=== PATIENT | female | born 2000 | race Caucasian/White ===

== ENCOUNTER 2024-11-23 19:45 | Inpatient (IN) | payer OTHER ==
[~2024-11-23] VITALS: Ht 165.1 cm; Wt 75.9 kg
[2024-11-23] MEDS: SODIUM CHLORIDE 0.9% 1,000 ML IV ONE (20:51)
[2024-11-23] MEDS: FAMOTIDINE 20 MG/2 ML VIAL IVP ONE (20:52)
[2024-11-23] MEDS: ONDANSETRON HCL 4 MG/2 ML VIAL IVP ONE (20:52)
[2024-11-23] MEDS: MAG HYDROX/ALUMINUM HYD/SIMETH 30 ML SUSPENSION UDCUP PO ONE (20:53)
[2024-11-23] MEDS: KETOROLAC TROMETHAMINE 30 MG/ML VIAL IVP ONE (20:53)
[2024-11-23 20:55] LABS: PLATELET COUNT (AUTO) 508 K/uL (150-450); RED BLOOD CELL COUNT(AUTO) 5.69 MIL/uL (4.00-5.20); RED CELL DISTRIBUTION WIDTH 18.2 % (11.5-14.5); WHITE BLOOD COUNT (AUTO) 15.0 K/uL (4.5-11.0)
[2024-11-23 20:56] LABS: RBC MORPHOLOGY COMMENT ABNORMAL RBC MORPH
[2024-11-23 21:07] LABS: CALCIUM, TOTAL 9.6 mg/dL (8.8-10.5); CREATININE 0.82 mg/dL (0.60-1.30); GLOMERULAR FILTR. RATE CALC > 60 mL/min (>60); GLUCOSE,RANDOM 85 mg/dL (70-110); SODIUM SERUM 136 mmol/L (136-145); UREA NITROGEN, BLOOD 17 mg/dL (7-18)
[2024-11-23 21:11] LABS: ASPARTATE AMINOTRANSFERASE 50 U/L (15-37); TOTAL PROTEIN, SERUM 8.5 g/dL (6.4-8.2)
[2024-11-23] MEDS ORDERED: POTASSIUM CHL 10 MEQ/WATER 50 ML IV SCH (21:15)
[2024-11-23 21:16] LABS: TROPONIN I-HIGH SENSITIVITY 21 ng/L (<51)
[2024-11-23 21:17] LABS: ALCOHOL, BLOOD (SERUM) < 3 mg/dL (0-10)
[2024-11-23 21:18] LABS: PH,URINE DRUG SCREEN 6.0 (5.0-8.0)
[2024-11-23 21:25] LABS: ALCOHOL, URINE DRUG SCREEN NEGATIVE (NEGATIVE); AMPHET/METH SCREEN,URINE NEGATIVE (NEGATIVE); BARBITURATE SCREEN, URINE NEGATIVE (NEGATIVE); CANNABINOID SCREEN,URINE POSITIVE (NEGATIVE); COCAINE SCREEN,URINE NEGATIVE (NEGATIVE); METHADONE SCREEN, URINE NEGATIVE (NEGATIVE)
[2024-11-23] MEDS: POTASSIUM CHLORIDE 40 MEQ in SODIUM CHLORIDE 0.9% 1,000 ML IV ONE (21:30)
[2024-11-23 21:48] LABS: LACTIC ACID 2.0 mmol/L (0.4-2.0)
[2024-11-23] MEDS: POTASSIUM CHLORIDE 20 MEQ ER TABLET PO ONE (22:20)
[2024-11-24 05:40] VITALS: BP 131/91; PULSE 84; RESP 18; TEMP 98.8; O2SAT 100
[2024-11-24] MEDS ORDERED: MORPHINE SULFATE 2 MG/ML SYRINGE IVP PRN (06:00)
[2024-11-24] MEDS ORDERED: MAGNESIUM HYDROXIDE SUSPENSION 30 ML UDCUP PO PRN (06:00)
[2024-11-24] MEDS ORDERED: ZOLPIDEM TARTRATE 5 MG TABLET PO PRN (06:00)
[2024-11-24] MEDS ORDERED: ACETAMINOPHEN 325 MG TABLET PO PRN (06:00)
[2024-11-24] MEDS ORDERED: BISACODYL 10 MG RECTAL RECTAL SUPPOSITORY PR PRN (06:00)
[2024-11-24] MEDS ORDERED: ALBUTEROL SULFATE 2.5 MG/0.5 ML NEB SOLUTION NEB PRN (06:00)
[2024-11-24] MEDS ORDERED: HYDROCODONE/ACETAMINOPHEN 5-325 MG TABLET PO PRN (06:00)
[2024-11-24] MEDS ORDERED: IPRATROPIUM BROMIDE 0.5 MG/2.5 ML NEB SOLUTION NEB PRN (06:00)
[2024-11-24] MEDS: ONDANSETRON HCL 4 MG/2 ML VIAL IVP PRN (06:48)
[2024-11-24 07:19] LABS: PLATELET COUNT (AUTO) 389 K/uL (150-450); RED BLOOD CELL COUNT(AUTO) 5.14 MIL/uL (4.00-5.20); RED CELL DISTRIBUTION WIDTH 17.8 % (11.5-14.5); WHITE BLOOD COUNT (AUTO) 11.9 K/uL (4.5-11.0)
[2024-11-24 07:24] LABS: RBC MORPHOLOGY COMMENT ABNORMAL RBC MORPH
[2024-11-24 07:31] LABS: CALCIUM, TOTAL 8.7 mg/dL (8.8-10.5); CREATININE 0.68 mg/dL (0.60-1.30); GLOMERULAR FILTR. RATE CALC > 60 mL/min (>60); GLUCOSE,RANDOM 79 mg/dL (70-110); SODIUM SERUM 138 mmol/L (136-145); UREA NITROGEN, BLOOD 14 mg/dL (7-18)
[2024-11-24] MEDS: SODIUM CHLORIDE 0.9% 1,000 ML IV SCH (07:39)
[2024-11-24] MEDS: HEPARIN SODIUM,PORCINE 5,000 UNITS/ML VIAL SQ SCH (08:00)
[2024-11-24 08:19] VITALS: BP 132/81; PULSE 85; RESP 17; TEMP 98.4; O2SAT 99
[2024-11-24] MEDS: PANTOPRAZOLE SODIUM 40 MG/VIAL IVP SCH (08:40)
[2024-11-24] MEDS: DOCUSATE SODIUM 100 MG CAPSULE PO SCH (08:41)
[2024-11-24] MEDS ORDERED: CIPR500S4 PO (09:07)
[2024-11-24] MEDS ORDERED: ALPR-410 PO (09:08)
[2024-11-24] MEDS ORDERED: HYDR25TA83 PO (09:10)
[2024-11-24] MEDS ORDERED: PROM25SU58 PR (09:15)
[2024-11-24 11:36] VITALS: BP 126/87; PULSE 74; RESP 17; TEMP 98.4; O2SAT 98
[2024-11-24] MEDS ORDERED: CIPR-515 PO (11:39)
[2024-11-24 15:50] VITALS: BP 138/99; PULSE 83; RESP 17; TEMP 98.1; O2SAT 98
[2024-11-24] MEDS ORDERED: MELATONIN 5 MG TABLET PO SCH (21:00)
== END 2024-11-24 16:20 | disposition left against medical advice (07) | DRG 422 ==
LOC: EMS 19:49 → EDH 11-24 03:43 → 5N 11-24 05:25
PROVIDERS: ADMIT Hospitalist; ATTEND Hospitalist
DX: E87.6 Hypokalemia (principal); E86.0 Dehydration; F33.1 Major depressive disorder, recurrent, moderate; F41.9 Anxiety disorder, unspecified; Z55.9 Problems related to education and literacy, unspecified; Z65.3 Problems related to other legal circumstances; Z59.9 Problem related to housing and economic circumstances, unspecified; Z63.9 Problem related to primary support group, unspecified
CPT/HCPCS: 80048; 80076; 80307; 83605; 83690; 83735; 84100; 84484; 84703; 85025; 93005; 99285; G0480; J1644; J1885; J2405; J2470; J3480; J3490; J7030

== ENCOUNTER → 2024-11-29 | Emergency (ER) | payer OTHER ==
[~2024-11-29] VITALS: Ht 172.7 cm; Wt 71.8 kg
[~2024-11-29] MED LIST: ALPR-410 PO; CIPR-515 PO; HYDR25TA83 PO; ONDA-104 PO; PROM25SU58 PR
[2024-11-29 21:10] VITALS: BP 134/98; PULSE 124; RESP 26; TEMP 98.6; O2SAT 98
== END | disposition left against medical advice (07) ==
LOC: EMS 20:58
DX: R11.10 Vomiting, unspecified (principal); Z53.21 Procedure and treatment not carried out due to patient leaving prior to being seen by health care provider

== ENCOUNTER 2024-11-30 06:23 | Emergency (ER) | payer OTHER ==
[~2024-11-30] VITALS: Ht 172.7 cm; Wt 72.0 kg
[~2024-11-30 06:23] MED LIST changes: -ONDA-104 PO
[2024-11-30 06:33] VITALS: TEMP 97.9
[2024-11-30 08:03] LABS: PLATELET COUNT (AUTO) 464 K/uL (150-450); RED BLOOD CELL COUNT(AUTO) 6.35 MIL/uL (4.00-5.20); RED CELL DISTRIBUTION WIDTH 19.2 % (11.5-14.5); WHITE BLOOD COUNT (AUTO) 17.6 K/uL (4.5-11.0)
[2024-11-30 08:12] LABS: CALCIUM, TOTAL 10.3 mg/dL (8.8-10.5); CREATININE 0.87 mg/dL (0.60-1.30); GLOMERULAR FILTR. RATE CALC > 60 mL/min (>60); GLUCOSE,RANDOM 99 mg/dL (70-110); SODIUM SERUM 137 mmol/L (136-145); UREA NITROGEN, BLOOD 13 mg/dL (7-18)
[2024-11-30] MEDS: SODIUM CHLORIDE 0.9% 1,000 ML IV ONE ×2 (08:15→11:00)
[2024-11-30] MEDS: ONDANSETRON HCL 4 MG/2 ML VIAL IVP ONE (08:16)
[2024-11-30 08:22] LABS: HCG,QUANTITATIVE < 1 mIU/mL (0-6)
[2024-11-30 08:57] LABS: APPEARANCE,URINE HAZY (CLEAR); GLUCOSE, URINE (UA) NEGATIVE (NEGATIVE); LEUKOCYTE ESTERASE ,URINE NEGATIVE (NEGATIVE); NITRATE,URINE NEGATIVE (NEGATIVE); OCCULT BLOOD,URINE MODERATE (NEGATIVE); SPECIFIC GRAVITIY, URINE 1.034 (1.003-1.030)
[2024-11-30 09:07] LABS: SULFOSALICYLIC ACID,URINE 2+ (Negative)
[2024-11-30 09:09] LABS: SQUAMOUS EPITHELIAL CELL,UR Many /LPF (None Seen)
[2024-11-30] MEDS: CefTRIAXone 1 GM/DEXTROSE 50 ML IV ONE (09:29)
[2024-11-30 12:55] VITALS: BP 138/64; PULSE 98; RESP 18; O2SAT 98
[2024-11-30] MEDS ORDERED: ONDA-104 PO (14:10)
== END 2024-11-30 14:24 | disposition home or self-care (01) ==
LOC: EMS 06:38
DX: F41.9 Anxiety disorder, unspecified (principal); E86.0 Dehydration; F32.A Depression, unspecified; F12.90 Cannabis use, unspecified, uncomplicated; N89.8 Other specified noninflammatory disorders of vagina; Z79.899 Other long term (current) drug therapy
CPT/HCPCS: 99284; 96365; 96375; 80048; 81001; 83690; 84702; 85025; 87086; 36415; J0696; J2405; J7030; 81002

== ENCOUNTER 2025-02-13 22:07 | Emergency (ER) | payer OTHER ==
[~2025-02-13] VITALS: Ht 162.6 cm; Wt 65.9 kg
[~2025-02-13 22:07] MED LIST changes: +ONDA-104 PO
[2025-02-13 22:10] VITALS: BP 128/86; PULSE 116; RESP 16; TEMP 98.4; O2SAT 98
[2025-02-13 22:35] LABS: PLATELET COUNT (AUTO) 497 K/uL (150-450); RED BLOOD CELL COUNT(AUTO) 5.59 MIL/uL (4.00-5.20); RED CELL DISTRIBUTION WIDTH 17.6 % (11.5-14.5); WHITE BLOOD COUNT (AUTO) 15.0 K/uL (4.5-11.0)
[2025-02-13 22:36] LABS: APPEARANCE,URINE CLEAR (CLEAR); GLUCOSE, URINE (UA) NEGATIVE (NEGATIVE); LEUKOCYTE ESTERASE ,URINE SMALL (NEGATIVE); NITRATE,URINE NEGATIVE (NEGATIVE); OCCULT BLOOD,URINE LARGE (NEGATIVE); PH,URINE DRUG SCREEN 6.0 (5.0-8.0); SPECIFIC GRAVITIY, URINE 1.036 (1.003-1.030)
[2025-02-13 22:42] LABS: ALCOHOL, URINE DRUG SCREEN NEGATIVE (NEGATIVE); AMPHET/METH SCREEN,URINE NEGATIVE (NEGATIVE); BARBITURATE SCREEN, URINE NEGATIVE (NEGATIVE); CANNABINOID SCREEN,URINE POSITIVE (NEGATIVE); COCAINE SCREEN,URINE NEGATIVE (NEGATIVE); METHADONE SCREEN, URINE NEGATIVE (NEGATIVE)
[2025-02-13 22:47] LABS: CALCIUM, TOTAL 9.5 mg/dL (8.8-10.5); CREATININE 0.73 mg/dL (0.60-1.30); GLOMERULAR FILTR. RATE CALC > 60 mL/min (>60); GLUCOSE,RANDOM 103 mg/dL (70-110); SODIUM SERUM 132 mmol/L (136-145); UREA NITROGEN, BLOOD 18 mg/dL (7-18)
[2025-02-13 22:56] LABS: SQUAMOUS EPITHELIAL CELL,UR Moderate /LPF (None Seen)
[2025-02-13 23:00] LABS: HCG,QUANTITATIVE < 1 mIU/mL (0-6)
[2025-02-14] MEDS: SODIUM CHLORIDE 0.9% 1,000 ML IV ONE (00:43)
[2025-02-14] MEDS ORDERED: ONDA-104 PO (01:44)
== END 2025-02-14 02:16 | disposition home or self-care (01) ==
LOC: EMS 22:09
DX: F12.90 Cannabis use, unspecified, uncomplicated (principal); R11.2 Nausea with vomiting, unspecified; R10.2 Pelvic and perineal pain; F32.A Depression, unspecified; F41.9 Anxiety disorder, unspecified; Z87.440 Personal history of urinary (tract) infections; Z79.899 Other long term (current) drug therapy
CPT/HCPCS: 99285; 74176; 80048; 81001; 83690; 84702; 85025; 36415; 80307; 96374; 96375; J1200; J1630; J7030

== ENCOUNTER 2025-02-19 11:36 | Emergency (ER) | payer OTHER ==
[~2025-02-19] VITALS: Ht 162.6 cm; Wt 59.1 kg
[2025-02-19 11:50] VITALS: TEMP 98.1
[2025-02-19 12:31] LABS: PLATELET COUNT (AUTO) 461 K/uL (150-450); RED BLOOD CELL COUNT(AUTO) 5.79 MIL/uL (4.00-5.20); RED CELL DISTRIBUTION WIDTH 18.1 % (11.5-14.5); WHITE BLOOD COUNT (AUTO) 13.6 K/uL (4.5-11.0)
[2025-02-19 12:39] LABS: CALCIUM, TOTAL 9.6 mg/dL (8.8-10.5); CREATININE 0.60 mg/dL (0.60-1.30); GLOMERULAR FILTR. RATE CALC > 60 mL/min (>60); GLUCOSE,RANDOM 86 mg/dL (70-110); SODIUM SERUM 134 mmol/L (136-145); UREA NITROGEN, BLOOD 13 mg/dL (7-18)
[2025-02-19 13:04] LABS: RBC MORPHOLOGY COMMENT ABNORMAL RBC MORPH
[2025-02-19] MEDS: SODIUM CHLORIDE 0.9% 1,000 ML IV ONE (13:45)
[2025-02-19] MEDS: METOCLOPRAMIDE HCL 5 MG/ML 2 ML VIAL IVP ONE (13:50)
[2025-02-19 14:00] VITALS: BP 132/88; PULSE 88; RESP 18; O2SAT 100
[2025-02-19 14:32] LABS: PH,URINE DRUG SCREEN 5.5 (5.0-8.0)
[2025-02-19 14:37] LABS: ALCOHOL, URINE DRUG SCREEN NEGATIVE (NEGATIVE); AMPHET/METH SCREEN,URINE NEGATIVE (NEGATIVE); BARBITURATE SCREEN, URINE NEGATIVE (NEGATIVE); CANNABINOID SCREEN,URINE POSITIVE (NEGATIVE); COCAINE SCREEN,URINE NEGATIVE (NEGATIVE); METHADONE SCREEN, URINE NEGATIVE (NEGATIVE)
== END 2025-02-19 15:54 | disposition home or self-care (01) ==
LOC: EMS 11:36
DX: R11.2 Nausea with vomiting, unspecified (principal); E86.0 Dehydration; F12.90 Cannabis use, unspecified, uncomplicated; F32.A Depression, unspecified; F41.9 Anxiety disorder, unspecified; Z79.899 Other long term (current) drug therapy
CPT/HCPCS: 99283; 96374; 96361; 80048; 84703; 85025; 36415; 80307; J2765; J7030